=== PATIENT | male | born 1975 | race Caucasian/White ===

== ENCOUNTER 2020-09-26 08:41 | Inpatient (IN) ==
[2020-09-26 09:30] LABS: ABS Basophils 0.1 10^3/ul (0-0.2); ABS Eosinophils 0.1 10^3/ul (0-0.6); ABS Lymphocytes 3.2 10^3/ul (1.0-4.8); ABS Monocytes 0.8 10^3/ul (0-0.8); ABS Neutrophils 12.4 10^3/ul (1.5-7.7); Eosinophil % 0.3 %; Hematocrit 44 % (42-52); Hemoglobin 14.9 g/dL (14.0-18.0); Lymphocyte % 19.4 %; Mean Corpuscular HGB Conc 34 g/dL (31-36); Mean Corpuscular Hemoglobin 31 pg (27-31); Mean Corpuscular Volume 89 fL (80-94); Mean Platelet Volume 8.6 fL (7.4-10.4); Platelet Count 199 10^3/uL (150-450); Red Cell Distribution Width 13 % (10-15); White Blood Count 16.5 10^3/uL (3.5-10.8)
[2020-09-26 09:38] LABS: Activated Partial Thrombo Time 28.1 seconds (26.0-38.0); INR 0.89 (0.82-1.09)
[2020-09-26 09:46] LABS: ALT 22 U/L (7-52); AST 39 U/L (13-39); Albumin 3.9 g/dL (3.2-5.2); Albumin/Globulin Ratio 1.6 (1-3); Alkaline Phosphatase 78 U/L (34-104); Anion Gap 6 mmol/L (2-11); BUN/Creatinine Ratio 23.2 (8-20); Blood Urea Nitrogen 16 mg/dL (6-24); CO2 Carbon Dioxide 25 mmol/L (22-32); Chloride 103 mmol/L (101-111); Cholesterol 172 mg/dL; Creatine Kinase 455 U/L (10-223); EGFR African American 150.7 (>60); EGFR Non-African American 124.6 (>60); Globulin 2.5 g/dL (2-4); Glucose 290 mg/dL (70-100); HDL Cholesterol 35.7 mg/dL; LDL Cholesterol 92 mg/dL; Magnesium 1.9 mg/dL (1.9-2.7); Potassium 4.4 mmol/L (3.5-5.0); Sodium 134 mmol/L (135-145); Total Protein 6.4 g/dL (6.4-8.9); Triglycerides 221 mg/dL
[2020-09-26 09:50] LABS: CKMB ng/mL 47.2 ng/mL (0.6-6.3)
[2020-09-26] MEDS ORDERED: cefTRIAXone 1 gm/50 mL NS BAG 1 GM/50 ML BAG IV ONE (10:00)
[2020-09-26 10:12] LABS: TSH Ultra Thyroid Stim Horm 0.76 mcIU/mL (0.34-5.60)
[2020-09-26] MEDS ORDERED: Heparin DRIP 25,000 UNITS BAG 25,000 UNITS/500 ML BAG IV SCH (10:15)
[2020-09-26] MEDS ORDERED: Dextrose 50% Syringe 50 ml 25 GM/50 ML SYRINGE IV PUSH PRN (10:18)
[2020-09-26] MEDS ORDERED: Senna TAB 8.6 mg TAB PO PRN (10:50)
[2020-09-26] MEDS ORDERED: Ondansetron 4 mg VIAL 2 MG/ML 2 ml VIAL IV PRN (10:50)
[2020-09-26] MEDS ORDERED: Heparin 5000 UNITS/ML 1 mL VIAL IV SCH (11:00)
[2020-09-26 12:01] LABS: Urine Appearance Clear; Urine Bilirubin Negative (Negative); Urine Blood Negative (Negative); Urine Color Yellow; Urine Glucose 3+(>=500 mg/dL) (Negative); Urine Ketones Negative (Negative); Urine Nitrite Negative (Negative); Urine Protein Negative (Negative); Urine Specific Gravity 1.024 (1.010-1.030); Urine Urobilinogen Negative (Negative)
[2020-09-26] MEDS ORDERED: Nicotine GUM 4MG FRUIT FLAVOR PO PRN (12:02)
[2020-09-26 12:34] LABS: C Reactive Protein 5.87 mg/L (<8.01)
[2020-09-26] MEDS ORDERED: Perflutren Lipid Microsphere 3 ML VIAL ONE (13:16)
[2020-09-26 13:20] LABS: Troponin I 6.83 ng/mL (<0.03)
[2020-09-26] MEDS ORDERED: diPHENhydraMINE 25 mg TAB PO PRN (13:35)
[2020-09-26] MEDS ORDERED: NS 0.9% 1000 ml BAG 1,000 ML IV SCH (13:45)
[2020-09-26] MEDS: NS 0.9% 1000 ml BAG 1,000 ML IV SCH ×2 (14:05→16:08)
[2020-09-26] MEDS ORDERED: fentaNYL 100 mcg/2 ml 50 MCG/ML VIAL ONE (14:32)
[2020-09-26] MEDS ORDERED: nitroGLYCERIN DRIP 25,000 MCG/250 ML BTL ONE (14:33)
[2020-09-26] MEDS ORDERED: Heparin 1,000 UNIT/ML 10 ml (10,000 UNITS) CATHLAB/DIALYSIS ONE ×2 (14:33→15:25)
[2020-09-26] MEDS ORDERED: Midazolam 5 mg/5 ml VIAL 1 mg/ml 5 ml VIAL (5 mg) ONE (14:33)
[2020-09-26] MEDS ORDERED: Heparin 2 UNITS/ML 1000 mls 2,000 ML IV ONE (14:33)
[2020-09-26] MEDS ORDERED: Iohexol 350 (CONTRAST) 200 ML MDV IV ONE ×2 (14:33→14:52)
[2020-09-26] MEDS ORDERED: VERAPAMIL 2.5 MG/ML 2 ML VIAL ** 5 mg/2 ml ONE (14:33)
[2020-09-26] MEDS ORDERED: Lidocaine 1% VIAL 10 MG/ML VIAL ONE (14:33)
[2020-09-26 15:02] LABS: Troponin I 10.04 ng/mL (<0.03)
[2020-09-27 05:05] LABS: BUN/Creatinine Ratio 13.2 (8-20); Calcium 9.2 mg/dL (8.6-10.3); EGFR African American 153.3 (>60); EGFR Non-African American 126.7 (>60); Potassium 4.2 mmol/L (3.5-5.0)
[2020-09-27 08:13] LABS: Troponin I 5.45 ng/mL (<0.03)
[2020-09-27] MEDS: Nicotine PATCH 21 MG/24 HR PATCH TRANSDERM SCH ×2 (08:28→08:42)
[2020-09-27 10:31] LABS: Hematocrit 46 % (42-52); Hemoglobin 15.6 g/dL (14.0-18.0); Mean Corpuscular HGB Conc 34 g/dL (31-36); Mean Corpuscular Hemoglobin 30 pg (27-31); Mean Corpuscular Volume 89 fL (80-94); Mean Platelet Volume 8.4 fL (7.4-10.4); Platelet Count 205 10^3/uL (150-450); Red Blood Count 5.18 10^6 /uL (4.18-5.48); Red Cell Distribution Width 12 % (10-15); White Blood Count 9.5 10^3/uL (3.5-10.8)
[2020-09-28] MEDS: Nicotine PATCH 21 MG/24 HR PATCH TRANSDERM SCH (08:50)
[2020-09-28] MEDS ORDERED: Pneumococcal Vac 23-Polyvalent IM ONE (09:00)
[2020-09-28 11:30] VITALS: BP 111/70
== END 2020-09-28 14:00 | disposition home or self-care (01) | DRG 174 ==
LOC: ED 08:41 → MEDTELE 10:12 → ICU 16:03 → MEDTELE 09-27 10:49
PROVIDERS: ADMIT Internal Medicine; ATTEND Internal Medicine